=== PATIENT | female | born 1990 | race Caucasian/White ===

== ENCOUNTER 2016-09-27 19:34 | Emergency (ER) | payer OTHER, BC | END 2016-09-27 20:26 | disposition home or self-care (01) | LOC: MW.ED 19:34 | CPT/HCPCS: 96360; 99283; 99283-25 ==

== ENCOUNTER 2016-11-04 21:44 | Emergency (ER) | payer BC ==
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
[2016-11-04 22:36] VITALS: BP 107/59
== END 2016-11-04 22:10 | disposition home or self-care (01) ==
LOC: MW.ED 21:44
DX: O99.89 Other specified diseases and conditions complicating pregnancy, childbirth and the puerperium (principal); M54.5 Low back pain; Z3A.12 12 weeks gestation of pregnancy; Z98.890 Other specified postprocedural states; Z79.899 Other long term (current) drug therapy; V89.2XXA Person injured in unspecified motor-vehicle accident, traffic, initial encounter
CPT/HCPCS: 99283

== ENCOUNTER 2017-03-01 08:44 | Emergency (ER) | payer BC ==
[2017-03-01] MEDS ORDERED: Sodium Chloride 0.9% 1,000 ML IV ONE (08:57)
[2017-03-01] MEDS ORDERED: Ondansetron 4 MG/2 ML SDV IVPUSH ONE (08:57)
--- NOTE | 2017-03-01 08:59 | EDM.PDOC ---
ED HPI GENERAL MEDICAL PROBLEM - General Chief Complaint: Gastrointestinal Problem Stated Complaint: VOMITING AND DIARRHEA Time Seen by Provider: 03/01/17 08:58 Source of Information: Reports: Patient - History of Present Illness INITIAL COMMENTS - FREE TEXT/NARRATIVE: HISTORY AND PHYSICAL: History of present illness: [26-year-old female with 28 weeks with IUP presents with vomiting and diarrhea she has multiple sick contacts at home over the last week with similar symptoms no fever chest pain shortness breath headache dizziness palpitation no urine symptoms] No low back pain vaginal discharge fluid leakage or bleeding spotting Review of systems: As per history of present illness and below otherwise all systems reviewed and negative. Past medical history: As per history of present illness and as reviewed below otherwise noncontributory. Surgical history: As per history of present illness and as reviewed below otherwise noncontributory. Social history: No reported history of drug or alcohol abuse. Family history: As per history of present illness and as reviewed below otherwise noncontributory. Physical exam: HEENT: Atraumatic, normocephalic, pupils reactive, negative for conjunctival pallor or scleral icterus, mucous membranes moist, throat clear, neck supple, nontender, trachea midline. Lungs: Clear to auscultation, breath sounds equal bilaterally, chest nontender. Heart: S1S2, regular, negative for clicks, rubs, or JVD. Abdomen: Soft, nondistended, nontender. Negative for masses or hepatosplenomegaly. Negative for costovertebral tenderness. Pelvis: Stable nontender. Genitourinary: Deferred. Rectal: Deferred. Extremities: Atraumatic, negative for cords or calf pain. Neurovascular unremarkable. Neuro: Awake, alert, oriented. Cranial nerves II through XII unremarkable. Cerebellum unremarkable. Motor and sensory unremarkable throughout. Exam nonfocal. Diagnostics: []CBC CMP UA OB is been down for monitoring with reassuring results Therapeutics: []Liter normal saline bolus Zofran 8 mg IV Macrobid Zofran Follow-up OB as scheduled sooner as needed Impression: []Viral syndrome UTI IUP 26 weeks under OB care Definitive disposition and diagnosis as appropriate pending reevaluation and review of above. 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: Musculoskeletal History: Reports: None Neurological History: Reports: None Psychiatric History: Reports: None Endocrine/Metabolic History: Reports: None Hematologic History: Reports: None Immunologic History: Reports: None Oncologic (Cancer) History: Reports: None Dermatologic History: Reports: None - Infectious Disease History Infectious Disease History: Reports: None - Past Surgical History Head Surgeries/Procedures: Reports: None HEENT Surgical History: Reports: Tonsillectomy Cardiovascular Surgical History: Reports: None Respiratory Surgical History: Reports: None GI Surgical History: Reports: None Female Surgical History: Reports: Section Neurological Surgical History: Reports: None Social & Family History - Family History Family Medical History: Noncontributory - Tobacco Use Smoking Status *Q: Never Smoker - Recreational Drug Use Recreational Drug Use: No ED ROS GENERAL - Review of Systems Review Of Systems: ROS reveals no pertinent complaints other than HPI. ED EXAM, GENERAL - Physical Exam Exam: See Below Course - Vital Signs Last Recorded V/S: Last Vital Signs Temp 98.8 F 03/01/17 08:56 Pulse 120 H 03/01/17 08:56 Resp 16 03/01/17 08:56 BP 107/72 03/01/17 08:56 Pulse Ox 96 03/01/17 08:56 Orthostatic Blood Pressure [ 114/54 Standing] Orthostatic Blood Pressure [ 90/60 Sitting] Orthostatic Blood Pressure [ 100/64 Supine] - Orders/Labs/Meds Orders: Active Orders 24 hr Category Date Time Status CULTURE URINE [RM] Stat Lab 03/01/17 10:20 Uncollected Labs: Laboratory Tests 03/01/17 03/01/17 03/01/17 Range/Units 09:05 09:05 09:50 WBC 10.53 (4.0-11.0) K/uL RBC 4.35 (4.30-5.90) M/uL Hgb 14.1 (12.0-16.0) g/dL Hct 40.4 (36.0-46.0) % MCV 92.9 (80.0-98.0) fL MCH 32.4 H (27.0-32.0) pg MCHC 34.9 (31.0-37.0) g/dL RDW Std Deviation 45.3 (28.0-62.0) fl RDW Coeff of Sukhwinder 13 (11.0-15.0) % Plt Count 228 (150-400) K/uL MPV 10.70 (7.40-12.00) fL Neut % (Auto) 87.8 H (48.0-80.0) % Lymph % (Auto) 5.9 L (16.0-40.0) % [place] % (Auto) 5.5 (0.0-15.0) % Eos % (Auto) 0.7 (0.0-7.0) % Baso % (Auto) 0.1 (0.0-1.5) % Neut # (Auto) 9.3 H (1.4-5.7) K/uL Lymph # (Auto) 0.6 (0.6-2.4) K/uL [place] # (Auto) 0.6 (0.0-0.8) K/uL Eos # (Auto) 0.1 (0.0-0.7) K/uL Baso # (Auto) 0.0 (0.0-0.1) K/uL Nucleated RBC % 0.0 /100WBC Nucleated RBCs # 0 K/uL Sodium 136 (136-146) mmol/L Potassium 3.6 (3.5-5.1) mmol/L Chloride 108 (98-110) mmol/L Carbon Dioxide 18 L (21-31) mmol/L BUN 8 (6.0-23.0) mg/dL Creatinine 0.6 (0.6-1.5) mg/dL Est Cr Clr Drug Dosing 125.61 mL/min Estimated GFR (MDRD) > 60.0 ml/min Glucose 96 (60-110) mg/dL Calcium 9.0 (8.8-10.8) mg/dL Total Bilirubin 0.4 (0.1-1.5) mg/dL AST 14 (5-40) IU/L ALT 14 (8-54) IU/L Alkaline Phosphatase 53 (40-150) Total Protein 6.8 (6.0-8.0) g/dL Albumin 3.5 (3.5-5.0) g/dL Globulin 3.3 (2.0-3.5) g/dL Albumin/Globulin Ratio 1.1 L (1.3-2.8) Urine Color YELLOW Urine Appearance CLEAR Urine pH 6.0 (5.0-8.0) Ur Specific [place] >= 1.030 (1.001-1.035) Urine Protein NEGATIVE (NEGATIVE) mg/dL Urine Glucose (UA) NEGATIVE (NEGATIVE) mg/dL Urine Ketones 40 H (NEGATIVE) mg/dL Urine Occult Blood NEGATIVE (NEGATIVE) Urine Nitrite NEGATIVE (NEGATIVE) Urine Bilirubin SMALL H (NEGATIVE) Urine Urobilinogen 0.2 (<2.0) EU/dL Ur Leukocyte Esterase TRACE (NEGATIVE) Urine RBC NONE SEEN (0-2/HPF) Urine WBC 4-6 (0-5/HPF) Ur Epithelial Cells MANY (NONE-FEW) Urine Bacteria 1+ H (NEGATIVE) Urine Mucus MODERATE (NONE-MOD) Meds: Medications Discontinued Medications Generic Name Dose Route Start Last Admin Trade Name Freq PRN Reason Stop Dose Admin Sodium Chloride 1,000 mls @ 999 mls/hr 03/01/17 08:57 03/01/17 09:14 Normal Saline IV 03/01/17 09:57 999 mls/hr STAT ONE Administration Ondansetron HCl 8 mg 03/01/17 08:57 03/01/17 09:14 Zofran IVPUSH 03/01/17 08:58 8 mg ONETIME ONE Administration Departure - Departure Time of Disposition: 10:24 Disposition: Home, Self-Care 01 Condition: Good Clinical Impression: Viral syndrome - Discharge Information Referrals: PCP,None [Primary Care Provider] - Forms: ED Department Discharge Additional Instructions: Rest fluids nutrition Medications as prescribed Return if symptoms persist or worsen Follow-up with OB as scheduled sooner as needed The following information is given to patients seen in the emergency department who are being discharged to home. This information is to outline your options for follow-up care. We provide all patients seen in our emergency department with a follow-up referral. The need for follow-up, as well as the timing and circumstances, are variable depending upon the specifics of your emergency department visit. If you don't have a primary care physician on staff, we will provide you with a referral. We always advise you to contact your personal physician following an emergency department visit to inform them of the circumstance of the visit and for follow-up with them and/or the need for any referrals to a consulting specialist. The emergency department will also refer you to a specialist when appropriate. This referral assures that you have the opportunity for follow-up care with a specialist. All of these measure are taken in an effort to provide you with optimal care, which includes your follow-up. Under all circumstances we always encourage you to contact your private physician who remains a resource for coordinating your care. When calling for follow-up care, please make the office aware that this follow-up is from your recent emergency room visit. If for any reason you are refused follow-up, please contact the [facility] emergency department at and asked to speak to the emergency department charge nurse. - My Orders Last 24 Hours: My Active Orders 03/01/17 10:20 CULTURE URINE [RM] Stat - Assessment/Plan Last 24 Hours: My Active Orders 03/01/17 10:20 CULTURE URINE [RM] Stat
[2017-03-01 09:37] LABS: CHLORIDE,CL 108 mmol/L (98-110); SODIUM,NA 136 mmol/L (136-146)
[2017-03-01 10:42] VITALS: BP 114/61
== END 2017-03-01 10:42 | disposition home or self-care (01) ==
LOC: MW.ED 08:44
DX: O23.42 Unspecified infection of urinary tract in pregnancy, second trimester (principal); B34.9 Viral infection, unspecified; Z3A.28 28 weeks gestation of pregnancy
CPT/HCPCS: 36415; 80053; 81001; 85025; 87086; 96361; 96374; 99284; J2405; J7040

== ENCOUNTER 2017-05-15 05:10 | Inpatient (IN) | payer BC ==
[2017-05-15] MEDS ORDERED: Sodium Chloride 0.9% 10 ML Syringe FLUSH PRN (05:43)
[2017-05-15] MEDS ORDERED: Sodium Chloride 0.9% 2.5 ML Syringe FLUSH PRN (05:43)
[2017-05-15] MEDS ORDERED: Lactated Ringers 1,000 ML IV SCH ×2 (05:45→09:30)
[2017-05-15] MEDS ORDERED: Oxytocin/0.9 % Sodium Chloride 30 UNIT/500 ML BAG IV SCH (05:45)
[2017-05-15] MEDS ORDERED: Citric Acid/Sodium Citrate Solution 30 ML Cup PO SCH (05:45)
--- NOTE | 2017-05-15 06:46 | PCM.PREANE ---
Preanesthetic Assessment - Anesthesia/Transfusion/Family Hx Anesthesia History: No Prior Anesthesia Family History of Anesthesia Reaction: No Transfusion History: No Prior Transfusion(s) Intubation History: Unknown - Review of Systems General: No Symptoms Pulmonary: No Symptoms Cardiovascular: No Symptoms Gastrointestinal: No Symptoms Neurological: No Symptoms Other: Reports: None - Physical Assessment Height: 1.65 m Weight: 69.672 kg ASA Class: 2 Mental Status: Alert & Oriented x3 Airway Class: Mallampati = 2 Dentition: Reports: Normal Dentition Thyro-Mental Finger Breadths: 3 Mouth Opening Finger Breadths: 3 ROM/Head Extension: Full Lungs: Clear to Auscultation, Normal Respiratory Effort Cardiovascular: Regular Rate, Regular Rhythm - Lab Values: Laboratory Last Values WBC 6.92 K/uL (4.0-11.0) 05/15/17 06:05 RBC 4.39 M/uL (4.30-5.90) 05/15/17 06:05 Hgb 13.8 g/dL (12.0-16.0) 05/15/17 06:05 Hct 39.7 % (36.0-46.0) 05/15/17 06:05 MCV 90.4 fL (80.0-98.0) 05/15/17 06:05 MCH 31.4 pg (27.0-32.0) 05/15/17 06:05 MCHC 34.8 g/dL (31.0-37.0) 05/15/17 06:05 RDW Std Deviation 43.3 fl (28.0-62.0) 05/15/17 06:05 RDW Coeff of Sukhwinder 13 % (11.0-15.0) 05/15/17 06:05 Plt Count 218 K/uL (150-400) 05/15/17 06:05 MPV 12.40 fL (7.40-12.00) H 05/15/17 06:05 Nucleated RBC % 0.0 /100WBC 05/15/17 06:05 Nucleated RBCs # 0 K/uL 05/15/17 06:05 - Allergies Allergies/Adverse Reactions: Allergies Allergy/AdvReac Type Severity Reaction Status Date / Time No Known Allergies Allergy Verified 03/01/17 08:54 - Blood Blood Available: No - Anesthesia Plan Pre-Op Medication Ordered: None - Acknowledgements Anesthesia Type Planned: Spinal Pt an Appropriate Candidate for the Planned Anesthesia: Yes Alternatives and Risks of Anesthesia Discussed w Pt/Guardian: Yes Pt/Guardian Understands and Agrees with Anesthesia Plan: Yes PreAnesthesia Questionnaire HEENT History: Reports: None Cardiovascular History: Reports: Other (See Below) Other Cardiovascular History: low blood pressure (ortostatic hypotension) earlier - now ok, " related" Respiratory History: Reports: None Gastrointestinal History: Reports: GERD Other Gastrointestinal History: "heartburn during " Genitourinary History: Reports: None MANAGER DIVISION 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: Reports: Musculoskeletal History: Reports: None Neurological History: Reports: None Psychiatric History: Reports: None Endocrine/Metabolic History: Reports: None Hematologic History: Reports: None Immunologic History: Reports: None Oncologic (Cancer) History: Reports: None Dermatologic History: Reports: None - Infectious Disease History Infectious Disease History: Reports: None - Past Surgical History Head Surgeries/Procedures: Reports: None HEENT Surgical History: Reports: Oral Surgery, Tonsillectomy Cardiovascular Surgical History: Reports: None Respiratory Surgical History: Reports: None GI Surgical History: Reports: None Female Surgical History: Reports: Section Other Female Surgeries/Procedures: 1 induced 03/2014 Neurological Surgical History: Reports: None - SUBSTANCE USE Smoking Status *Q: Never Smoker Second Hand Smoke Exposure: Yes Recreational Drug Use History: No - HOME MEDS Home Medications: Home Meds PNV95/Ferrous Fumarate/FA [ Tablet] 1 each PO DAILY 09/27/16 [History] Acetaminophen [Tylenol] 2 tab PO ASDIRECTED PRN 05/12/17 [History] Doxylamine Succinate [Unisom Sleep Aid] 1 tab PO BEDTIME 05/12/17 [History] Ranitidine [Zantac] 75 mg PO DAILY 05/12/17 [History] - CURRENT (IN HOUSE) MEDS Current Meds: Current Medications Citric Acid/Sodium Citrate (Bicitra Solution) 30 ml PO .ONCE ALEAH Lactated Ringer's (Ringers, Lactated) 1,000 mls @ 500 mls/hr IV .BOLUS ALEAH Last Admin: 05/15/17 06:23 Dose: 500 mls/hr Oxytocin/Sodium Chloride (Oxytocin 30 Unit/500 Ml-Ns) 30 unit in 500 mls @ 250 mls/hr IV TITRATE ALEAH Sodium Chloride (Saline Flush) 10 ml FLUSH ASDIRECTED PRN PRN Reason: Keep Vein Open Sodium Chloride (Saline Flush) 2.5 ml FLUSH ASDIRECTED PRN PRN Reason: Keep Vein Open
[2017-05-15] MEDS ORDERED: Morphine PF 1 MG/ML Amp ONE (07:14)
[2017-05-15] MEDS ORDERED: Ondansetron 4 MG/2 ML SDV ONE (07:14)
[2017-05-15] MEDS ORDERED: ePHEDrine 50 MG/ML SDV ONE (07:16)
[2017-05-15] MEDS ORDERED: Octyl 2-Cyanoacrylate 1 Tube ONE (07:19)
[2017-05-15] MEDS ORDERED: Oxytocin/0.9 % Sodium Chloride 30 UNIT/500 ML BAG ONE (07:30)
[2017-05-15] MEDS ORDERED: ceFAZolin 2 GM in Premix Bag 1 BAG IV ONE (07:33)
[2017-05-15] MEDS ORDERED: ceFAZolin/Dextrose,Iso-Osmotic 2 GM/50 ML Duplex Bag IV ONE (07:36)
[2017-05-15] MEDS ORDERED: Phenylephrine/Normal Saline 100 MCG/ML 10 ML Syringe ONE (08:05)
[2017-05-15] MEDS ORDERED: Glycopyrrolate 0.2 MG/ML SDV ONE (08:33)
[2017-05-15] MEDS ORDERED: Acetaminophen/oxyCODONE 325-5 MG Tab PO PRN (09:19)
[2017-05-15] MEDS ORDERED: Nalbuphine 10 MG/1 ML Vial IVPUSH PRN (09:20)
[2017-05-15] MEDS ORDERED: fentaNYL 100 MCG/2 ML SDV IVPUSH PRN (09:20)
[2017-05-15] MEDS ORDERED: Naloxone 0.4 MG/ML Syringe IVPUSH PRN (09:20)
[2017-05-15] MEDS ORDERED: Bisacodyl 10 MG Supp RECTAL PRN (09:21)
[2017-05-15] MEDS ORDERED: diphenhydrAMINE 50 MG/ML SDV IVPUSH PRN (09:21)
[2017-05-15] MEDS ORDERED: Lanolin 100% Cream 7 GM Tube TOP PRN (09:21)
[2017-05-15] MEDS ORDERED: Ondansetron 4 MG/2 ML SDV IV PRN (09:21)
--- NOTE | 2017-05-15 09:35 | PCM.OPNOTE ---
- General Post-Op/Procedure Note Date of Surgery/Procedure: 05/15/17 Operative Procedure(s): Repeat section Findings: Female , Wt 3535g, Apgars 9 and 9. Partial peritoneum adherent to the anterior uterine wall. Normal tubes and ovaries bilaterally Grossly normal placenta with 3 vessel cord Pre Op Diagnosis: IUP at 39 weeks. Previous Post-Op Diagnosis: Same Anesthesia Technique: Spinal Primary Surgeon: Divina Child Fluid Replacement, Intraop: 2,000 Output, Urine Amount: 180 EBL in mLs: 700 Complications: None Condition: Good
[2017-05-15] MEDS: Ketorolac 30 MG/ML SDV IVPUSH SCH ×3 (09:44→21:12)
--- NOTE | 2017-05-15 09:58 | PCM.POSTAN ---
POST ANESTHESIA ASSESSMENT - MENTAL STATUS Mental Status: Alert, Oriented - RESPIRATORY Respiratory Status: Respiratory Rate WNL, Airway Patent, O2 Saturation Stable - CARDIOVASCULAR CV Status: Pulse Rate WNL, Blood Pressure Stable - GASTROINTESTINAL GI Status: No Symptoms - POST OP HYDRATION Hydration Status: Adequate & Stable
[2017-05-15] MEDS: Docusate Sodium 100 MG Cap PO SCH (21:12)
--- NOTE | 2017-05-16 02:38 | OR ---
SURGEON: Divina Child MD DATE OF PROCEDURE: 05/15/2017 PREOPERATIVE DIAGNOSES: 1. Term intrauterine at 39 weeks and 1 day. 2. Repeat elective section. 3. History of one prior section. POSTOPERATIVE DIAGNOSES: 1. Term intrauterine at 39 weeks and 1 day. 2. Repeat elective section. 3. History of one prior section. 4. Delivered. PROCEDURES: 1. Low-transverse section via Pfannenstiel. 2. Revision of scar 3. Adhesiolysis. ANESTHESIA: Spinal. ESTIMATED BLOOD LOSS: 700 mL. IV FLUIDS: 2000 mL of crystalloid. URINE OUTPUT: 180 mL, clear at the end of the procedure. COMPLICATIONS: None. CONDITION: Stable to recovery room. INDICATION: A 26-year-old, G3, P1-0-1-1 at 39 weeks and 1 day, repeat elective section for a history of a previous section, declined trial of labor after section. FINDINGS: A female in cephalic presentation, delivered in right occipital transverse position. Clear amniotic fluid, no nuchal cord, weight 3535 g, scores 9 and 9 at 1 and 5 minutes respectively. Grossly normal uterus, tubes, and ovaries.Grossly normal placenta with 3-vessel cord. Adhesions between the parietal peritoneum, anterior uterine wall and the dome of the bladder noted during surgery. DESCRIPTION OF PROCEDURE: The patient was taken to the operating room, where spinal anesthesia was performed and found to be adequate. She was then prepped and draped a normal sterile fashion in dorsal supine position with a leftward tilt. Ancef 2 g was given. Appropriate time-out was held. SCDs were in place. A transverse Pfannenstiel incision was then made with a with a scalpel after the old scar was excised and carried through to the underlying layer of the fascia with the scalpel. The fascia was then incised in the midline, and incision was extended laterally with the Bovie and the scalpel. The superior aspect of this fascial incision was grasped with Chele clamps, elevated, and underlying rectus muscle was dissected off sharply with the scalpel. Attention was then turned to the inferior aspect of this incision which in similar fashion was grasped and tented up with the Chele clamps, and the rectus muscles were dissected off with the scalpel. The rectus muscle was then in the midline using the Bovie until the parietal peritoneum was reached. The parietal peritoneum was then noted to be adherent to the anterior uterine wall, and these adhesions were then carefully taken down using both electrocautery and the Metzenbaum scissors. Once the adhesions were taken down, the incision was then extended laterally by stretching and a self-retaining Sammy retractor was placed into the cavity. Due to the adhesions, a bladder flap was not created. The lower uterine segment was then incised transversely and extended upwards and downwards manually. The infant's head was then lifted out and was delivered atraumatically followed by the shoulders and the rest of the body. The baby cried spontaneously at , and was vigorous. The cord was then double clamped and cut, and the was handed over to the waiting nursery team. Cord blood and gas samples were obtained. The placenta was then removed spontaneously by massaging. The uterus was cleaned of all the clots and the debris, and the uterine incision was repaired in 2 layers using #0 Vicryl suture, the first layer was performed in a running locked fashion and a second imbricating layer was performed to obtain excellent hemostasis. A couple of hemostatic [id number] sutures were also placed in the lower uterine segment to obtain better hemostasis. The paracolic gutters were cleaned of all clots and debris, and copious irrigation was performed. Interceed was placed on the hysterotomy site and also on the dome of the bladder. The Sammy retractor was then removed from the abdominal cavity. The edge of the parietal peritoneum was identified, and this layer was closed with 2-0 Vicryl suture in a running fashion. The subfascial layer was found to be hemostatic. The fascia was then reapproximated with 0 Vicryl suture in a running fashion. The subcuticular layer was then made hemostatic with electrocautery. The skin was closed using subcuticular stitches of 4-0 Monocryl suture. The patient tolerated the procedure well. Sponge, instruments, and needle counts were correct at the end of the procedure. The patient was taken to the recovery room in stable condition. The baby was taken to the nursery in a stable condition. SHEILA / VASQUEZ /[id number] CATHIE
[2017-05-16] MEDS: Ketorolac 30 MG/ML SDV IVPUSH SCH ×2 (03:57→09:00)
[2017-05-16] MEDS: Docusate Sodium 100 MG Cap PO SCH ×2 (09:00→21:09)
--- NOTE | 2017-05-16 09:34 | PCM.PNPP ---
- General Info Date of Service: 05/16/17 Admission Dx/Problem (Free Text): 26 yo P2 s/p repeat P0D1 Subjective Update: Patient seen at bedside , she denies any complains , she has fair pain control , she is ambulating , voiding and tolerating regular diet Functional Status: Reports: Pain Controlled, Tolerating Diet, Ambulating, Urinating - Review of Systems General: Reports: No Symptoms HEENT: Reports: No Symptoms Pulmonary: Reports: No Symptoms Cardiovascular: Reports: No Symptoms Gastrointestinal: Reports: No Symptoms Genitourinary: Reports: No Symptoms Musculoskeletal: Reports: No Symptoms Skin: Reports: No Symptoms Neurological: Reports: No Symptoms Psychiatric: Reports: No Symptoms - General Info Date of Service: 05/16/17 - Patient Data Vital Signs - Most Recent: Last Vital Signs Temp 37.3 C 05/16/17 07:34 Pulse 65 05/16/17 07:34 Resp 15 05/16/17 07:34 BP 116/64 05/16/17 07:34 Pulse Ox 95 05/16/17 07:34 Weight - Most Recent: 69.672 kg I&O - Last 24 Hours: Intake & Output 05/15/17 05/16/17 05/16/17 22:59 06:59 14:59 Intake Total 2050 1050 Output Total 600 1400 Balance 1450 -350 Lab Results - Last 24 Hours: Laboratory Results - last 24 hr 05/15/17 05/16/17 Range/Units 08:28 05:44 Hgb 11.3 L (12.0-16.0) g/dL Hct 32.9 L (36.0-46.0) % Cord ABG pH 7.326 (7.18-7.38) Cord ABG Base Excess -5 (-10--2) Cord VBG pH 7.413 (7.25-7.45) Cord VBG Base Excess -6 (-10--2) Med Orders - Current: Current Medications Bisacodyl (Dulcolax) 10 mg RECTAL .ONCE PRN PRN Reason: Constipation Diphenhydramine HCl (Benadryl) 25 mg IVPUSH Q6H PRN PRN Reason: Itching or Nausea Last Admin: 05/15/17 10:40 Dose: 25 mg Docusate Sodium (Colace) 100 mg PO BID [facility]LE[facility] Last Admin: 05/16/17 09:00 Dose: 100 mg Emollient Ointment (Lansinoh Hpa) 0 gm TOP ASDIRECTED PRN PRN Reason: Sore Nipples Lactated Ringer's (Ringers, Lactated) 1,000 mls @ 125 mls/hr IV ASDIRECTED ON LICENSE OF [facility] Last Infusion: 05/15/17 19:00 Dose: Infused Ibuprofen (Motrin) 800 mg PO Q8H PRN PRN Reason: mild pain or fever Ketorolac Tromethamine (Toradol) 30 mg IVPUSH Q6H ON LICENSE OF [facility] Stop: 05/16/17 09:31 Last Admin: 05/16/17 09:00 Dose: 30 mg Ondansetron HCl (Zofran) 4 mg IV Q4H PRN PRN Reason: Nausea/Vomiting Oxycodone/Acetaminophen (Percocet 325-5 Mg) 1 tab PO Q4H PRN PRN Reason: Pain (moderate 4-6) Oxycodone/Acetaminophen (Percocet 325-5 Mg) 2 tab PO Q4H PRN PRN Reason: Pain (moderate 4-6) Discontinued Medications Cefazolin Sodium/Dextrose (Ancef) Confirm Administered Dose 2 gm IV .STK-MED ONE Stop: 05/15/17 07:37 Citric Acid/Sodium Citrate (Bicitra Solution) 30 ml PO .ONCE ON LICENSE OF [facility] Last Admin: 05/15/17 06:49 Dose: 30 ml Ephedrine Sulfate (Ephedrine Sulfate) Confirm Administered Dose 50 mg .ROUTE .STK-MED ONE Stop: 05/15/17 07:17 Fentanyl (Sublimaze) 50 mcg IVPUSH .Q60MIN PRN PRN Reason: Breakthrough Pain Stop: 05/16/17 09:20 Glycopyrrolate (Robinul) Confirm Administered Dose 0.2 mg .ROUTE .STK-MED ONE Stop: 05/15/17 08:34 Lactated Ringer's (Ringers, Lactated) 1,000 mls @ 500 mls/hr IV .BOLUS ON LICENSE OF [facility] Last Admin: 05/15/17 06:23 Dose: 500 mls/hr Oxytocin/Sodium Chloride (Oxytocin 30 Unit/500 Ml-Ns) 30 unit in 500 mls @ 250 mls/hr IV TITRATE ALEAH Oxytocin/Sodium Chloride (Oxytocin 30 Unit/500 Ml-Ns) Confirm Administered Dose 30 unit in 500 mls @ as directed .ROUTE .STK-MED ONE Stop: 05/15/17 07:31 Cefazolin Sodium/Dextrose 2 gm (/ Premix) 50 mls @ 100 mls/hr IV ONETIME ONE Stop: 05/15/17 08:02 Morphine Sulfate (Duramorph Pf) Confirm Administered Dose 1 mg .ROUTE .STK-MED ONE Stop: 05/15/17 07:15 Nalbuphine HCl (Nubain) 2.5 mg IVPUSH Q3H PRN PRN Reason: Pruritis Stop: 05/16/17 09:20 Naloxone HCl (Narcan) 0.1 mg IVPUSH ONETIME PRN PRN Reason: RR<6 WITH STIMULATION Stop: 05/16/17 09:20 Octyl Cyanoacrylate (Dermabond Advance) Confirm Administered Dose 1 applic .ROUTE .STK-MED ONE Stop: 05/15/17 07:20 Ondansetron HCl (Zofran) Confirm Administered Dose 4 mg .ROUTE .STK-MED ONE Stop: 05/15/17 07:15 Oxycodone/Acetaminophen (Percocet 325-5 Mg) 1 tab PO .Q4HRS PRN PRN Reason: Breakthrough Pain Stop: 05/16/17 09:19 Phenylephrine HCl (Phenylephrine In Ns 100 Mcg/Ml) Confirm Administered Dose 1 mg .ROUTE .STK-MED ONE Stop: 05/15/17 08:06 Sodium Chloride (Saline Flush) 10 ml FLUSH ASDIRECTED PRN PRN Reason: Keep Vein Open Sodium Chloride (Saline Flush) 2.5 ml FLUSH ASDIRECTED PRN PRN Reason: Keep Vein Open - Infant Interaction Infant Disposition, : [place] in Room with Family Infant Interaction: Holding Infant Feeding: Breastfed Infant; Nursed Well Support Person: - Recovery Exam Fundal Tone: Firm Fundal Level: 1 Fingerbreadths Below Umbilicus Fundal Placement: Midline Lochia Amount: Scant Lochia Color: Rubra/Red Perineum Description: Intact, Minimal Bruising/Swelling Episiotomy/Laceration: None Bladder Status: Voiding Urinary Elimination: Voided - Exam General: Alert, Oriented HEENT: Pupils Equal Lungs: Clear to Auscultation Cardiovascular: Regular Rate, Regular Rhythm GI/Abdominal Exam: Normal Bowel Sounds, Other (Pfannestiel skin incison c/d/i ) Extremities: Normal Inspection Skin: Warm Wound/Incisions: Dressing Dry and Intact Psy/Mental Status: Alert - Problem List & Annotations (1) delivery delivered SNOMED Code(s): 587481399 Code(s): O82 - ENCOUNTER FOR DELIVERY WITHOUT INDICATION Status: Acute Current Visit: Yes - Problem List Review Problem List Initiated/Reviewed/Updated: Yes - Assessment Assessment:: 26 yo P2 s/p repeat , stable , normal lochia , patient well controlled - Plan Plan:: Continue pain medication as needed Regular diet Ambulate Monitor voiding Routine care
[2017-05-16] MEDS: Acetaminophen/oxyCODONE 325-5 MG Tab PO PRN ×4 (10:58→21:08)
[2017-05-16] MEDS: Ibuprofen 800 MG Tab PO PRN (14:55)
--- NOTE | 2017-05-16 16:54 | PCM48HPAN ---
Post Anesthesia Note - EVALUATION WITHIN 48HRS OF ANESTHETIC Vital Signs in Normal Range: Yes Patient Participated in Evaluation: Yes Respiratory Function Stable: Yes Airway Patent: Yes Cardiovascular Function Stable: Yes Hydration Status Stable: Yes Pain Control Satisfactory: Yes Nausea and Vomiting Control Satisfactory: Yes Mental Status Recovered: Yes Resp Rate: 14
[2017-05-17] MEDS: Acetaminophen/oxyCODONE 325-5 MG Tab PO PRN ×3 (01:14→09:01)
[2017-05-17] MEDS: Ibuprofen 800 MG Tab PO PRN (05:28)
[2017-05-17 05:42] VITALS: BP 118/59
[2017-05-17] MEDS: Docusate Sodium 100 MG Cap PO SCH (09:01)
--- NOTE | 2017-05-17 09:31 | PCM.PNPP ---
- General Info Date of Service: 05/17/17 Admission Dx/Problem (Free Text): 26 yo P2 s/p repeat P0D2 Subjective Update: Patient seen at bedside , she denies any complains , she has good pain control , she is ambulating , voiding and tolerating regular diet Functional Status: Reports: Pain Controlled, Tolerating Diet, Ambulating, Urinating - Review of Systems General: Reports: No Symptoms HEENT: Reports: No Symptoms Pulmonary: Reports: No Symptoms Cardiovascular: Reports: No Symptoms Gastrointestinal: Reports: No Symptoms Genitourinary: Reports: No Symptoms Musculoskeletal: Reports: No Symptoms Skin: Reports: No Symptoms Neurological: Reports: No Symptoms Psychiatric: Reports: No Symptoms - General Info Date of Service: 05/17/17 - Patient Data Vital Signs - Most Recent: Last Vital Signs Temp 36.9 C 05/17/17 07:25 Pulse 63 05/17/17 07:25 Resp 16 05/17/17 07:25 BP 118/59 L 05/17/17 07:25 Pulse Ox 94 L 05/17/17 07:25 Weight - Most Recent: 69.672 kg Med Orders - Current: Current Medications Bisacodyl (Dulcolax) 10 mg RECTAL .ONCE PRN PRN Reason: Constipation Diphenhydramine HCl (Benadryl) 25 mg IVPUSH Q6H PRN PRN Reason: Itching or Nausea Last Admin: 05/15/17 10:40 Dose: 25 mg Docusate Sodium (Colace) 100 mg PO BID [facility] Last Admin: 05/17/17 09:01 Dose: 100 mg Emollient Ointment (Lansinoh Hpa) 0 gm TOP ASDIRECTED PRN PRN Reason: Sore Nipples Lactated Ringer's (Ringers, Lactated) 1,000 mls @ 125 mls/hr IV ASDIRECTED [facility] Last Infusion: 05/15/17 19:00 Dose: Infused Ibuprofen (Motrin) 800 mg PO Q8H PRN PRN Reason: mild pain or fever Last Admin: 05/17/17 05:28 Dose: 800 mg Ondansetron HCl (Zofran) 4 mg IV Q4H PRN PRN Reason: Nausea/Vomiting Oxycodone/Acetaminophen (Percocet 325-5 Mg) 1 tab PO Q4H PRN PRN Reason: Pain (moderate 4-6) Last Admin: 05/17/17 09:01 Dose: 1 tab Oxycodone/Acetaminophen (Percocet 325-5 Mg) 2 tab PO Q4H PRN PRN Reason: Pain (moderate 4-6) Last Admin: 05/17/17 01:14 Dose: 2 tab Discontinued Medications Cefazolin Sodium/Dextrose (Ancef) Confirm Administered Dose 2 gm IV .STK-MED ONE Stop: 05/15/17 07:37 Citric Acid/Sodium Citrate (Bicitra Solution) 30 ml PO .ONCE [facility] Last Admin: 05/15/17 06:49 Dose: 30 ml Ephedrine Sulfate (Ephedrine Sulfate) Confirm Administered Dose 50 mg .ROUTE .STK-MED ONE Stop: 05/15/17 07:17 Fentanyl (Sublimaze) 50 mcg IVPUSH .Q60MIN PRN PRN Reason: Breakthrough Pain Stop: 05/16/17 09:20 Glycopyrrolate (Robinul) Confirm Administered Dose 0.2 mg .ROUTE .STK-MED ONE Stop: 05/15/17 08:34 Lactated Ringer's (Ringers, Lactated) 1,000 mls @ 500 mls/hr IV .BOLUS [facility] Last Admin: 05/15/17 06:23 Dose: 500 mls/hr Oxytocin/Sodium Chloride (Oxytocin 30 Unit/500 Ml-Ns) 30 unit in 500 mls @ 250 mls/hr IV TITRATE ALEAH Oxytocin/Sodium Chloride (Oxytocin 30 Unit/500 Ml-Ns) Confirm Administered Dose 30 unit in 500 mls @ as directed .ROUTE .STK-MED ONE Stop: 05/15/17 07:31 Last Admin: 05/16/17 19:18 Dose: Not Given Cefazolin Sodium/Dextrose 2 gm (/ Premix) 50 mls @ 100 mls/hr IV ONETIME ONE Stop: 05/15/17 08:02 Last Admin: 05/16/17 19:19 Dose: Not Given Ketorolac Tromethamine (Toradol) 30 mg IVPUSH Q6H [facility] Stop: 05/16/17 09:31 Last Admin: 05/16/17 09:00 Dose: 30 mg Morphine Sulfate (Duramorph Pf) Confirm Administered Dose 1 mg .ROUTE .STK-MED ONE Stop: 05/15/17 07:15 Nalbuphine HCl (Nubain) 2.5 mg IVPUSH Q3H PRN PRN Reason: Pruritis Stop: 05/16/17 09:20 Naloxone HCl (Narcan) 0.1 mg IVPUSH ONETIME PRN PRN Reason: RR<6 WITH STIMULATION Stop: 05/16/17 09:20 Octyl Cyanoacrylate (Dermabond Advance) Confirm Administered Dose 1 applic .ROUTE .STK-MED ONE Stop: 05/15/17 07:20 Ondansetron HCl (Zofran) Confirm Administered Dose 4 mg .ROUTE .STK-MED ONE Stop: 05/15/17 07:15 Oxycodone/Acetaminophen (Percocet 325-5 Mg) 1 tab PO .Q4HRS PRN PRN Reason: Breakthrough Pain Stop: 05/16/17 09:19 Phenylephrine HCl (Phenylephrine In Ns 100 Mcg/Ml) Confirm Administered Dose 1 mg .ROUTE .STK-MED ONE Stop: 05/15/17 08:06 Sodium Chloride (Saline Flush) 10 ml FLUSH ASDIRECTED PRN PRN Reason: Keep Vein Open Sodium Chloride (Saline Flush) 2.5 ml FLUSH ASDIRECTED PRN PRN Reason: Keep Vein Open - Infant Interaction Disposition, : in Room with Family Interaction: Holding Infant Feeding: Breastfed ; Nursed Well Support Person: - Recovery Exam Fundal Tone: Firm Fundal Level: 1 Fingerbreadths Below Umbilicus Fundal Placement: Midline Lochia Amount: Scant Lochia Color: Rubra/Red Perineum Description: Intact, Minimal Bruising/Swelling Episiotomy/Laceration: None Bladder Status: Voiding Urinary Elimination: Voided - Exam General: Alert, Oriented HEENT: Pupils Equal, Pupils Reactive Neck: Supple Lungs: Clear to Auscultation Cardiovascular: Regular Rate, Regular Rhythm GI/Abdominal Exam: Other (pfannestiel skin incision , c/d/i) Extremities: Normal Inspection Wound/Incisions: Dressing Dry and Intact Psy/Mental Status: Alert - Problem List & Annotations (1) delivery delivered SNOMED Code(s): 050152225 Code(s): O82 - ENCOUNTER FOR DELIVERY WITHOUT INDICATION Status: Acute Current Visit: Yes - Problem List Review Problem List Initiated/Reviewed/Updated: Yes - My Orders Last 24 Hours: My Active Orders 05/17/17 09:27 Ready for Discharge [RC] PER UNIT ROUTINE - Assessment Assessment:: 26 yo P2 s/p repeat PPD2, stable , normal lochia , patient well controlled - Plan Plan:: Continue pain medication as needed Regular diet Ambulate Routine care Discharge home today
== END 2017-05-17 13:00 | disposition home or self-care (01) | DRG 540 ==
LOC: MW.OB 05:10
PROVIDERS: ADMIT Obstetrics & Gynecology; ATTEND Obstetrics & Gynecology
PROC: 10D00Z1 Extraction of Products of Conception, Low, Open Approach (ICD-10-PCS; principal; 2017-05-15)
PROC: 0DNW0ZZ Release Peritoneum, Open Approach (ICD-10-PCS; 2017-05-15)
DX: O34.211 Maternal care for low transverse scar from previous cesarean delivery (principal); O99.89 Other specified diseases and conditions complicating pregnancy, childbirth and the puerperium; N73.6 Female pelvic peritoneal adhesions (postinfective); Z3A.39 39 weeks gestation of pregnancy; Z37.0 Single live birth
CPT/HCPCS: 01961; 36415; 51703; 82803; 85014; 85018; 85027; 86850; 86900; 86901; 88302; A9270-GY; C1765; J0690; J1200; J1885; J2274; J2405; J7120

== ENCOUNTER 2019-11-25 10:20 | Day surgery (SDC) | payer BC ==
[~2019-11-25 10:20] MED LIST: Lactated Ringers 1,000 ML IV SCH
--- NOTE | 2019-11-25 11:21 | PCM.PREANE ---
Preanesthetic Assessment - Anesthesia/Transfusion/Family Hx Anesthesia History: No Prior Anesthesia Family History of Anesthesia Reaction: No Transfusion History: No Prior Transfusion(s) Intubation History: Unknown - Review of Systems General: No Symptoms Pulmonary: No Symptoms Cardiovascular: No Symptoms Gastrointestinal: No Symptoms Neurological: No Symptoms Other: Reports: None - Physical Assessment Height: 5 ft 6.25 in Weight: 63.957 kg ASA Class: 1 Mental Status: Alert & Oriented x3 Airway Class: Mallampati = 1 Dentition: Reports: Normal Dentition Thyro-Mental Finger Breadths: 3 Mouth Opening Finger Breadths: 3 ROM/Head Extension: Full Lungs: Clear to Auscultation, Normal Respiratory Effort Cardiovascular: Regular Rate, Regular Rhythm - Lab Values: Laboratory Last Values WBC 9.69 K/uL (4.0-11.0) 11/25/19 10:59 RBC 4.57 M/uL (4.30-5.90) 11/25/19 10:59 Hgb 14.1 g/dL (12.0-16.0) 11/25/19 10:59 Hct 42.4 % (36.0-46.0) 11/25/19 10:59 MCV 92.8 fL (80.0-98.0) 11/25/19 10:59 MCH 30.9 pg (27.0-32.0) 11/25/19 10:59 MCHC 33.3 g/dL (31.0-37.0) 11/25/19 10:59 RDW Std Deviation 44.3 fl (28.0-62.0) 11/25/19 10:59 RDW Coeff of Sukhwinder 13 % (11.0-15.0) 11/25/19 10:59 Plt Count 345 K/uL (150-400) 11/25/19 10:59 MPV 10.30 fL (7.40-12.00) 11/25/19 10:59 Nucleated RBC % 0.0 /100WBC 11/25/19 10:59 Nucleated RBCs # 0 K/uL 11/25/19 10:59 - Allergies Allergies/Adverse Reactions: Allergies Allergy/AdvReac Type Severity Reaction Status Date / Time No Known Allergies Allergy Verified 11/23/19 09:43 - Blood Blood Available: No - Anesthesia Plan Pre-Op Medication Ordered: None - Acknowledgements Anesthesia Type Planned: MAC (general aneshesia back-up plan) Pt an Appropriate Candidate for the Planned Anesthesia: Yes Alternatives and Risks of Anesthesia Discussed w Pt/Guardian: Yes Pt/Guardian Understands and Agrees with Anesthesia Plan: Yes PreAnesthesia Questionnaire HEENT History: Reports: None Cardiovascular History: Reports: None Respiratory History: Reports: None Gastrointestinal History: Reports: None Genitourinary History: Reports: None [employer] 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: Reports: Musculoskeletal History: Reports: None Neurological History: Reports: None Psychiatric History: Reports: None, Other (See Below) (h/o depression) Endocrine/Metabolic History: Reports: None Hematologic History: Reports: None Immunologic History: Reports: None Oncologic (Cancer) History: Reports: None Dermatologic History: Reports: None - Infectious Disease History Infectious Disease History: Reports: None - Past Surgical History Head Surgeries/Procedures: Reports: None HEENT Surgical History: Reports: Oral Surgery, Tonsillectomy Cardiovascular Surgical History: Reports: None Respiratory Surgical History: Reports: None GI Surgical History: Reports: None Female Surgical History: Reports: Section (x2) Other Female Surgeries/Procedures: 1 elective termination of 03/2014 Endocrine Surgical History: Reports: None Neurological Surgical History: Reports: None Musculoskeletal Surgical History: Reports: None Oncologic Surgical History: Reports: None Dermatological Surgical History: Reports: None - SUBSTANCE USE Smoking Status *Q: Never Smoker Recreational Drug Use History: No - HOME MEDS Home Medications: Home Meds Acetaminophen [Tylenol] 2 tab PO ASDIRECTED PRN 05/25/19 [History] norethindrone ac-eth estradioL [Junel 1.5 mg-30 Mcg Tablet] 1 tab PO DAILY 05/25/19 [History] Amoxicillin 500 mg PO TID 11/23/19 [History] Folic Acid/Multivit-Min/Lutein [Centrum Silver Chewable Tablet] 1 tab.chew CHEW DAILY 11/23/19 [History] - CURRENT (IN HOUSE) MEDS Current Meds: Current Medications Lactated Ringer's (Ringers, Lactated) 1,000 mls @ 125 mls/hr IV ASDIRECTED [facility]
[2019-11-25] MEDS ORDERED: Propofol 200 MG/20 ML SDV ONE ×2 (11:46→13:01)
[2019-11-25] MEDS ORDERED: Lidocaine 2% 5 ML SDV ONE (11:46)
[2019-11-25] MEDS ORDERED: fentaNYL 100 MCG/2 ML SDV ONE ×2 (11:46→13:00)
[2019-11-25] MEDS ORDERED: Midazolam 1 MG/ML 2 ML SDV ONE (11:46)
[2019-11-25] MEDS ORDERED: Ondansetron 4 MG/2 ML SDV ONE (12:06)
[2019-11-25] MEDS ORDERED: Acetaminophen/HYDROcodone 325-5 MG Tab PO PRN (13:31)
--- NOTE | 2019-11-25 13:38 | PCM.OPNOTE ---
- General Post-Op/Procedure Note Date of Surgery/Procedure: 11/25/19 Operative Procedure(s): LEEP procedure Findings: Normal sized anteverted uterus Acetowhite epithelium encircling the transformation zone Thicker acetowhite patch at 11 0clock Cervical ectropion Bleeding noted from a vessel at 8 oclock , hence a encircling stitch done around edges and base of cervix covered with surgicel in monsel Pre Op Diagnosis: Moderate cervical dysplasia Post-Op Diagnosis: same Anesthesia Technique: General LMA Primary Surgeon: Dima Maciel Anesthesia Provider: Ramsey Rich Detective Lieutenant: Demetrio PERALTA Pathology: Cervical cone Fluid Replacement, Intraop: 1,500 EBL in mLs: 150 Complications: none Condition: Good
[2019-11-25] MEDS ORDERED: Ketorolac 30 MG/ML SDV IVPUSH ONE (13:55)
--- NOTE | 2019-11-25 13:55 | PCM.POSTAN ---
POST ANESTHESIA ASSESSMENT - MENTAL STATUS Mental Status: Alert, Oriented - VITAL SIGNS Vital Signs: Last Vital Signs Temp 36.8 C 11/25/19 13:24 Pulse 62 11/25/19 13:45 Resp 13 11/25/19 13:45 BP 122/72 11/25/19 13:45 Pulse Ox 99 11/25/19 13:45 - RESPIRATORY Respiratory Status: Respiratory Rate WNL, Airway Patent, O2 Saturation Stable - CARDIOVASCULAR CV Status: Pulse Rate WNL, Blood Pressure Stable - GASTROINTESTINAL GI Status: No Symptoms - PAIN Pain Score: 0 (\) - POST OP HYDRATION Hydration Status: Adequate & Stable - OBSERVATIONS Free Text/Narrative:: No anesthesia problems
--- NOTE | 2019-11-25 14:36 | PCM48HPAN ---
Post Anesthesia Note - EVALUATION WITHIN 48HRS OF ANESTHETIC Vital Signs in Normal Range: Yes Patient Participated in Evaluation: Yes Respiratory Function Stable: Yes Airway Patent: Yes Cardiovascular Function Stable: Yes Hydration Status Stable: Yes Pain Control Satisfactory: Yes Nausea and Vomiting Control Satisfactory: Yes Mental Status Recovered: Yes Vital Signs: Last Vital Signs Temp 36.5 C 11/25/19 13:50 Pulse 55 L 11/25/19 13:50 Resp 15 11/25/19 13:50 BP 110/65 11/25/19 13:50 Pulse Ox 98 11/25/19 13:50 - COMMENTS/OBSERVATIONS Free Text/Narrative:: No anesthesia problems
[2019-11-25 14:53] VITALS: BP 107/68; PULSE 56
--- NOTE | 2019-11-28 09:20 | OR ---
SURGEON: JAYDA SAEZ DATE OF PROCEDURE: 11/25/2019 PREOPERATIVE DIAGNOSIS: A 29-year-old, para 2, with cervical intraepithelial neoplasia 2. POSTOPERATIVE DIAGNOSIS: A 29-year-old, para 2, with cervical intraepithelial neoplasia 2. PROCEDURE: Loop electrode excision procedure. ESTIMATED BLOOD LOSS: 150. ANESTHESIA: General. IV FLUID: 1500. COMPLICATIONS: None. BRIEF HISTORY ABOUT THE PATIENT: She is a 29-year-old who had a history of ASCUS-H Pap, which had a colposcopy done. She had SANTIAGO 2 with positive ECC SANTIAGO 2, and the patient was counseled for a LEEP procedure, which deferred till now. The patient desired LEEP procedure. DESCRIPTION OF PROCEDURE: The patient was taken to the operating room where general anesthesia was performed without difficulty. She was prepared and draped in the dorsal supine lithotomy position with Arnaldo stirrups. The insulated speculum was used to expose the cervix. Acetic acid was then used to prep the cervix after which the loop was then passed from the right to the left to excise the abnormal portion of the cervix. Upon inspection, was noted to have a bleeding vessel that was causing a lot of bleeding around 7 o'clock position. Cautery was attempted, which did not stop the bleeding. As a result, interlocking stitch was done on the edges of the bed of the LEEP. Then the ECC was done after which Surgicel embedded and Monsel's was put at the base and tied with a suture in place. The patient tolerated the procedure well. All instrument and pad counts were correct x2. The patient was sent home in stable condition. GALINA OVALLE /[id number] CATHIE
== END 2019-11-25 14:47 | disposition home or self-care (01) ==
LOC: MW.SDS 10:20
PROVIDERS: ATTEND Obstetrics & Gynecology
DX: N87.1 Moderate cervical dysplasia (principal)
CPT/HCPCS: 36415; 57522; 84703; 85027; 88305; J0131; J1885; J2001; J2250; J2405; J2704; J3010; J7120; 00940